=== PATIENT | male | born 1995 | race Caucasian/White ===

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

== ENCOUNTER 2017-03-06 20:52 | Emergency (ER) | payer OTHER ==
[2017-03-06 21:00] VITALS: BP 144/64; PULSE 83; RESP 18; TEMP 98
--- NOTE | 2017-03-06 21:24 | ED ---
Skin/Abscess/FB HPI - General Chief complaint: Skin/Abscess/Foreign Body Stated complaint: Poss Poison [place] Time Seen by Provider: 03/06/17 21:08 Source: patient, RN notes reviewed, old records reviewed Mode of arrival: ambulatory Limitations: no limitations - History of Present Illness Initial comments: This patient is a 21-year-old male presents today to complain of poison oak rash. Patient reports that he was hunting this weekend and was exposed. Your ports that he tried to use vduq-krm-xjshgmj medications but the rash is spreading and becoming worse. He reports it's very puritic. Denies any fever, chills, chest pain, shortness of breath, nausea or vomiting. - Related Data Previous Rx's Medication Instructions Recorded predniSONE 10 mg PO DAILY #30 tab 03/06/17 Allergies Allergy/AdvReac Type Severity Reaction Status Date / Time No Known Allergies Allergy Verified 03/06/17 21:08 Review of Systems ROS Statement: Those systems with pertinent positive or pertinent negative responses have been documented in the HPI. ROS Other: All systems not noted in ROS Statement are negative. Past Medical History Past Medical History: Asthma History of Any Multi-Drug Resistant Organisms: None Reported Past Surgical History: Adenoidectomy, Appendectomy, Ear Surgery, Tonsillectomy Additional Past Surgical History / Comment(s): ear tubes, Past Psychological History: No Psychological Hx Reported Smoking Status: Former smoker Past Alcohol Use History: Occasional Past Drug Use History: None Reported General Exam - General Exam Comments Initial Comments: Patient is a 21 year old male. No acute distress Limitations: no limitations General appearance: alert, in no apparent distress Head exam: Present: atraumatic, normocephalic, normal inspection Eye exam: Present: normal appearance, PERRL, EOMI. Absent: scleral icterus, conjunctival injection, periorbital swelling ENT exam: Present: normal exam, mucous membranes moist Neck exam: Present: normal inspection. Absent: tenderness, meningismus, lymphadenopathy Respiratory exam: Present: normal lung sounds bilaterally. Absent: respiratory distress, wheezes, rales, rhonchi, stridor Cardiovascular Exam: Present: regular rate, normal rhythm, normal heart sounds. Absent: systolic murmur, diastolic murmur, rubs, gallop, clicks Neurological exam: Present: alert, oriented X3 Psychiatric exam: Present: normal affect, normal mood Skin exam: Present: warm, dry, intact, normal color, rash (erythematous liniear raised rash on chest right iarm consistent wth poision karina or oak) Course Vital Signs 03/06/17 20:56 Temperature 98.0 F Pulse Rate 83 Respiratory 18 Rate Blood Pressure 144/64 O2 Sat by Pulse 98 Oximetry Medical Decision Making - Medical Decision Making This patient is a 21-year-old male presents today to complain of poison oak rash. Patient reports that he was hunting this weekend and was exposed. Your ports that he tried to use ojra-gcr-nhnrtea medications but the rash is spreading and becoming worse.Patient has a raised your rash consistent with poison oak over chest, neck, and right arm. Patient was given IM Solu-Medrol. Will be discharged with steroids. Discussed using zyie-ygb-ycmekku Caladryl to dry the rash out. Discussed all questions were answered us. Disposition Clinical Impression: Poison karina dermatitis Disposition: HOME SELF-CARE Condition: Good Instructions: Poison Karina (ED) Additional Instructions: Patient advised to apply Caladryl lotion over the areas. Take Benadryl as well. Take the steroids as directed. Avoid hot showers's that we'll make the itching worse. Return to the emergency department if any alarming signs or symptoms occur. Prescriptions: predniSONE 10 mg PO DAILY #30 tab Referrals: None,Stated [Primary Care Provider] - 1-2 days Time of Disposition: 21:33
[2017-03-06] MEDS ORDERED: methylPREDNISolone SOD SUCCI 125 MG/2 ML VIAL IM ONE (21:32)
== END 2017-03-06 21:50 | disposition home or self-care (01) ==
LOC: EC 20:52
DX: L23.7 Allergic contact dermatitis due to plants, except food (principal); Z87.891 Personal history of nicotine dependence
CPT/HCPCS: 99283; 96372; J2930

== ENCOUNTER 2018-02-25 18:57 | Emergency (ER) | payer OTHER ==
[2018-02-25 19:01] VITALS: BP 124/70; PULSE 83; RESP 16; TEMP 98.3
[2018-02-25] MEDS ORDERED: PROPARACAINE 0.5% OPHTH DROPS 15 ML BTL RIGHT EYE STA (19:15)
[2018-02-25] MEDS ORDERED: TOBRAMYCIN 0.3% OPHTH OINT 3.5 GM TUBE RIGHT EYE STA (19:56)
--- NOTE | 2018-02-25 19:56 | ED ---
Eye Problem HPI - General Chief complaint: Eye Problems Stated complaint: FB in eye Time Seen by Provider: 02/25/18 19:14 Source: patient Mode of arrival: ambulatory Limitations: no limitations - History of Present Illness Initial comments: 22-year-old male patient presents to the emergency department today for evaluation of right eye discomfort and tearing. Patient states that he was cutting plywood earlier today around 11:30 this morning. States that something flew into his eye during this. Patient states that he did attempt to flush out however the eye remained painful throughout the day. Denies any blurred vision or double vision. States his tetanus vaccine is up-to-date. Denies any bloody drainage from the eye. Denies any other symptoms or concerns. - Related Data Home Medications Medication Instructions Recorded Confirmed No Known Home Medications 02/25/18 02/25/18 Allergies Allergy/AdvReac Type Severity Reaction Status Date / Time No Known Allergies Allergy Verified 02/25/18 19:01 Review of Systems ROS Statement: Those systems with pertinent positive or pertinent negative responses have been documented in the HPI. ROS Other: All systems not noted in ROS Statement are negative. Past Medical History Past Medical History: Asthma History of Any Multi-Drug Resistant Organisms: None Reported Past Surgical History: Adenoidectomy, Appendectomy, Ear Surgery, Tonsillectomy Additional Past Surgical History / Comment(s): ear tubes, Past Psychological History: No Psychological Hx Reported Smoking Status: Former smoker Past Alcohol Use History: Occasional Past Drug Use History: None Reported General Exam Limitations: no limitations General appearance: alert, in no apparent distress, other (This is a well- developed, well-nourished adult male patient in no acute distress. Vital signs upon presentation are temperature 98.3F, pulse 83, respirations 16, blood pressure 124/70, pulse ox 99% on room air.) Eye exam: Present: PERRL, EOMI, conjunctival injection (Mild conjunctival injection on the right), other (Right lid swelling and erythema. Did perform lid eversion, no evidence of foreign body. Fluorescein stain with Wood's lamp examination was performed and showed no evidence of corneal or conjunctival abrasion. No evidence of hyphema or globe rupture appear). Absent: normal appearance, scleral icterus, periorbital swelling ENT exam: Present: normal exam, normal oropharynx, mucous membranes moist Respiratory exam: Present: normal lung sounds bilaterally. Absent: respiratory distress, wheezes, rales, rhonchi, stridor Cardiovascular Exam: Present: regular rate, normal rhythm, normal heart sounds. Absent: systolic murmur, diastolic murmur, rubs, gallop, clicks Neurological exam: Present: alert, oriented X3, CN II-XII intact Psychiatric exam: Present: normal affect, normal mood Skin exam: Present: warm, dry, intact, normal color. Absent: rash Course Vital Signs 02/25/18 18:59 Temperature 98.3 F Pulse Rate 83 Respiratory 16 Rate Blood Pressure 124/70 O2 Sat by Pulse 99 Oximetry Medical Decision Making - Medical Decision Making 22-year-old male patient presents to the emergency department today for evaluation of right eye irritation and discomfort. Physical examination did reveal mild right-sided conjunctival injection with mild right upper lid swelling. Fluorescein stain with Wood's lamp examination was performed and showed no evidence of corneal or conjunctival abrasion. I did perform lid eversion both upper and lower showed no evidence of foreign body. Patient did have complete resolution of symptoms with use of proparacaine. I also did discuss the case with poison control as the nupur was treated with a fire retardant chemical. They reported no concern for contamination to the eye from this. Patient has no evidence of globe injury. Vision is intact. He'll be discharged home at the tobramycin ointment to use 4 times daily. He is instructed to follow-up with the bookkeepers supervisor for recheck in 1-2 days if his symptoms aren't improved. Return parameters are discussed in detail. He verbalizes understanding and agrees with this plan Disposition Clinical Impression: Irritation of right eye Disposition: HOME SELF-CARE Condition: Good Instructions: Tobramycin (Into the eye), Eye Pain (ED) Additional Instructions: By 1 cm ribbon of ointment to the right eye 4 times daily while awake. Follow- up with ophthalmology for recheck of her symptoms aren't improved over the next 24-48 hours. Return to the emergency department immediately for any new, worsening, or concerning symptoms. Is patient prescribed a controlled substance at d/c from ED?: No Referrals: None,Stated [Primary Care Provider] - 1-2 days Time of Disposition: 19:56
== END 2018-02-25 20:15 | disposition home or self-care (01) ==
LOC: EC 18:57
DX: H57.89 Other specified disorders of eye and adnexa (principal); Z87.891 Personal history of nicotine dependence
CPT/HCPCS: 99283

== ENCOUNTER 2018-08-15 19:28 | Emergency (ER) | payer OTHER ==
[2018-08-15] MEDS ORDERED: DIPH,PERTUS(ACELL)TETVAC-LF 0.5 ML VIAL IM ONE (19:58)
[2018-08-15] MEDS ORDERED: LIDOCAINE 1% INJ 10MG/ML (20 ML MDV) SQ ONE (19:59)
[2018-08-15 20:15] VITALS: BP 131/78; PULSE 85; RESP 18; TEMP 98
--- NOTE | 2018-08-15 20:58 | XR ---
EXAMINATION TYPE: XR hand complete LT DATE OF EXAM: 08/15/2018 COMPARISON: NONE HISTORY: Pain. Laceration. TECHNIQUE: 3 views FINDINGS: There is a tuft fracture of the distal phalanx of the index finger. There is no sign of a r adiopaque foreign body. The fourth and fifth digits are intact. Carpal bones are intact. IMPRESSION: Tuft fracture of the distal phalanx. No fracture seen of the fourth and fifth digits whic h were the area of concern. No sign of a foreign body.
--- NOTE | 2018-08-15 21:32 | ED ---
Skin/Abscess/FB HPI - General Chief complaint: Skin/Abscess/Foreign Body Stated complaint: Finger lac Time Seen by Provider: 08/15/18 19:42 Source: patient Mode of arrival: ambulatory Limitations: no limitations - History of Present Illness Initial comments: 22-year-old male presenting for chief complaint of left hand laceration. Patient states he cut his finger on a steak in the ground between the fourth and fifth digits. Patient states he has no limitations in range of motion he states the bleeding is controlled. Patient denies any numbness tingling or loss sensation. Remaining review of systems negative patient denies injury to head neck. Patient states he previously his index finger with a hammer about a week or 2 ago. No acute injury. Remaining review of systems negative upon arrival patient appears well no signs of acute distress. Pt unsure of last tetanus - Related Data Home Medications Medication Instructions Recorded Confirmed No Known Home Medications 02/25/18 02/25/18 Allergies Allergy/AdvReac Type Severity Reaction Status Date / Time No Known Allergies Allergy Verified 02/25/18 19:01 Review of Systems ROS Statement: Those systems with pertinent positive or pertinent negative responses have been documented in the HPI. ROS Other: All systems not noted in ROS Statement are negative. Past Medical History Past Medical History: Asthma History of Any Multi-Drug Resistant Organisms: None Reported Past Surgical History: Adenoidectomy, Appendectomy, Ear Surgery, Tonsillectomy Additional Past Surgical History / Comment(s): ear tubes, Past Psychological History: No Psychological Hx Reported Smoking Status: Former smoker Past Alcohol Use History: Occasional Past Drug Use History: None Reported General Exam - General Exam Comments Initial Comments: General: The patient is awake and alert, in no distress, and does not appear acutely ill. Eye: Pupils are equal, round and reactive to light, extra-ocular movements are intact. No nystagmus. There is normal conjunctiva bilaterally. No signs of icterus. Ears, nose, mouth and throat: There are moist mucous membranes and no oral lesions. Neck: The neck is supple, there is no tenderness or JVD. Cardiovascular: There is a regular rate and rhythm. No murmur, rub or gallop is appreciated. Respiratory: Lungs are clear to auscultation, respirations are non-labored, breath sounds are equal. No wheezes, stridor, rales, or rhonchi. Musculoskeletal: Normal ROM, no tenderness. Strength 5/5. Sensation intact. Pulses equal bilaterally 2+. Neurological: A&O x 3. CN II-XII intact, There are no obvious motor or sensory deficits. Coordination appears grossly intact. Speech is normal. Skin: Skin is warm and dry and no rashes. 1.2 cm superficial laceration of the left hand in the web space between digitis 4-5. Status post of underlying structures. Patient is full range motion at the IP joints as well as the MTP joint. No noted weakness. No concern for tendon injury. No evidence of foreign body. Also digits of the left hand have no noted weakness at the MTP T IP or PIP joints. Full sensation of the proximal distal to injury site. Psychiatric: Cooperative, appropriate mood & affect, normal judgment. Limitations: no limitations Course Vital Signs 08/15/18 08/15/18 19:31 20:14 Temperature 98.2 F 98 F Pulse Rate 86 85 Respiratory 16 18 Rate Blood Pressure 132/78 131/78 O2 Sat by Pulse 96 99 Oximetry Procedures - Laceration Laceration #1 Consent Obtained: verbal consent Indication: laceration Site: hand Size (cm): 1 (1.2) Description: linear Depth: simple, single layer Anesthetic Used: lidocaine 1% Anesthesia Technique: local infiltration Amount (mls): 1 Pre-repair: wound explored, irrigated extensively, deep structures intact Type of Sutures: nylon Size of Sutures: 5-0 Number of Sutures: 3 Technique: simple, interrupted Patient Tolerated Procedure: well, no complications Medical Decision Making - Medical Decision Making 22-year-old male presenting for chief complaint of left hand laceration. Laceration appears superficial. No suspicion for tendon injury. Full range of motion without any evidence of weakness evidence of tendon exposure on examination. No evidence of foreign body. Tetanus updated. There is extensive the irrigated and cleansed with iodine. Prior to closure. Patient tolerate the procedure well. X-ray revealed no evidence of foreign body or osseous injury associated with the area of laceration however there was no tuft fracture of the index finger. This is not acute. This happened earlier this week. Patient has no limitation to range of motion at the index finger. No evidence of avulsion of nail. Discussed the case attending provider Dr. Shay. Patient stated for discharge. Return parameters as well as return for suture removal in 7 days was discussed with patient as well as the signs and symptoms of infection. Patient verbalized understanding. Disposition Clinical Impression: Hand laceration, Hand injury, Closed fracture of tuft of distal phalanx of finger Disposition: HOME SELF-CARE Condition: Good Instructions (If sedation given, give patient instructions): Care For Your Stitches (ED), Laceration (ED) Additional Instructions: Please use medication as discussed. Please follow-up with family doctor in the next 2 days, and in 7 days for future removal. Please return to emergency room if the symptoms increase or worsen or for any other concerns. Is patient prescribed a controlled substance at d/c from ED?: No Referrals: None,Stated [Primary Care Provider] - 1-2 days Time of Disposition: 21:32
== END 2018-08-15 21:54 | disposition home or self-care (01) ==
LOC: EC 19:28
DX: S62.631A Displaced fracture of distal phalanx of left index finger, initial encounter for closed fracture (principal); S61.412A Laceration without foreign body of left hand, initial encounter; Z87.891 Personal history of nicotine dependence; Z23 Encounter for immunization; W26.8XXA Contact with other sharp object(s), not elsewhere classified, initial encounter
CPT/HCPCS: 73130; 90715; 99283; 12001; 90471; J2001

== ENCOUNTER 2019-09-17 01:19 | Emergency (ER) | payer OTHER ==
[2019-09-17 01:27] VITALS: RESP 18
[2019-09-17] MEDS ORDERED: SODIUM CHLORIDE 0.9% 500 ML 500 ML IV STA (01:42)
[2019-09-17] MEDS ORDERED: MORPHINE SULFATE 4 MG/ML SYRINGE IV STA (02:09)
[2019-09-17 02:11] LABS: Basophils # (A) 0.1 k/uL (0-0.2); Basophils % (A) 1 %; Eosinophils # (A) 0.4 k/uL (0-0.7); Eosinophils % (A) 7 %; HCT 44.2 % (39.0-53.0); HGB 14.7 gm/dL (13.0-17.5); Lymphocytes # (A) 2.3 k/uL (1.0-4.8); Lymphocytes % (A) 39 %; MCHC 33.3 g/dL (31.0-37.0); MCV 90.1 fL (80.0-100.0); Mean Platelet Volume 6.8; Monocytes # (A) 0.4 k/uL (0-1.0); Monocytes % (A) 7 %; Neutrophils # (A) 2.6 k/uL (1.3-7.7); Neutrophils % (A) 44 %; Platelet Count 299 k/uL (150-450); RBC 4.91 m/uL (4.30-5.90); RDW 12.3 % (11.5-15.5)
[2019-09-17 02:21] LABS: ALT 22 U/L (4-49); AST 26 U/L (17-59); African American GFR (CKD) >90 (>60 ml/min/1.73 sqM); Albumin 4.8 g/dL (3.5-5.0); Alkaline Phosphatase 65 U/L (38-126); Anion Gap 10 mmol/L; Blood Urea Nitrogen 14 mg/dL (9-20); Calcium 9.7 mg/dL (8.4-10.2); Carbon Dioxide 26 mmol/L (22-30); Chloride 105 mmol/L (98-107); Glucose 97 mg/dL (74-99); Non-African American GFR(CKD) >90 (>60 ml/min/1.73 sqM); Potassium 3.8 mmol/L (3.5-5.1); Sodium 141 mmol/L (137-145); Total Bilirubin 0.6 mg/dL (0.2-1.3)
--- NOTE | 2019-09-17 02:30 | XR ---
EXAMINATION TYPE: XR chest 2V DATE OF EXAM: 09/17/2019 COMPARISON: 01/17/2017 HISTORY: Difficulty breathing TECHNIQUE: FINDINGS: Heart and mediastinum are normal. Lungs are clear. Diaphragm is normal. Bony thorax appears normal. IMPRESSION: Normal chest. No change.
[2019-09-17 02:50] VITALS: BP 131/85; PULSE 64; TEMP 97.5
--- NOTE | 2019-09-17 02:53 | CT ---
EXAMINATION TYPE: CT angio chest DATE OF EXAM: 09/17/2019 COMPARISON: None HISTORY: PAIN Chest pain. CT DLP: 473.4 mGycm Automated exposure control for dose reduction was used. CONTRAST: Performed with IV Contrast, patient injected with 70 mL of Isovue 370. There are 3-D post processed images. FINDINGS: Mediastinum is normal. Thoracic aorta is intact. There is no aneurysm or dissection. Heart appears no rmal. There is no pericardial effusion. There is no pleural effusion. There is minimal interstitial d ensity right posterior lung base. There is no evidence of a pulmonary mass. There is no pulmonary con solidation. Bony thorax is intact. There is no compression fracture. Sternum is intact. The upper abdominal soft tissues are intact. There is normal contrast opacification of the pulmonary arteries. There are no filling defects. IMPRESSION: Negative CT angiogram of the chest. No evidence of pulmonary embolism.
--- NOTE | 2019-09-17 02:59 | CT ---
EXAMINATION TYPE: CT angio upper extremity LT DATE OF EXAM: 09/17/2019 COMPARISON: None HISTORY: pain Arm pain. Pain at the shoulder and wrist. CT DLP: 556.7 mGycm Automated exposure control for dose reduction was used. CONTRAST: Performed with IV Contrast, patient injected with 130 mL of Isovue 370. There are 3-D post processed images. There is wide patency of the left subclavian artery. There is normal branching pattern of the great v essels on the aortic arch. There is wide patency of the left axillary and left brachial artery. There is arterial flow demonstrated in the distal brachial artery. The radial and ulnar arteries are not w ell evaluated on this exam. There is insufficient contrast in these vessels for adequate evaluation. There appears to be arterial flow in the radial and ulnar arteries in the distal forearm. I cannot ev aluate for stenosis. The mip images in the coronal plane appear to show normal-sized vessels in the m id and proximal forearm of the radius and ulna arteries. There is no evidence of a soft tissue mass. There is no evidence of an aneurysm. I see no evidence of vascular malformation. IMPRESSION: Exam fails to show any vascular abnormality of the left arm. There is wide patency of the subclavian axillary brachial and proximal radial and ulnar arteries.
--- NOTE | 2019-09-17 03:15 | ED ---
General Adult HPI - General Chief complaint: Extremity Problem,Nontraumatic Stated complaint: LT arm pain, SOB Time Seen by Provider: 09/17/19 01:30 Source: patient, RN notes reviewed, old records reviewed Mode of arrival: ambulatory Limitations: no limitations - History of Present Illness Initial comments: 24-year-old male patient presents to emergency department with chief complaint left shoulder pain. Patient reports that he was lying in bed approximately 11 PM when he had some numbness and tingling on the left arm. Patient then began to have pain in his left shoulder extending down to his left wrist region. Patient denies any acute injury. 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 He reports that for a brief time he had some pain in his left shoulder when he took a deep breath denies any shortness of breath or any chest pain. Denies any other complaints. Systemic: Pt denies fatigue, fever/chills, rash. Pt denies weakness, night sweats, weight loss. Neuro: Pt denies headache, visual disturbances, syncope or pre-syncope. HEENT: Pt denies ocular discharge or irritation, otalgia, rhinorrhea, pharyngitis or notable lymphadenopathy. Cardiopulmonary: Pt denies chest pain, SOB, heart palpitations, dyspnea on exertion. Abdominal/GI: Pt denies abdominal pain, n/v/d. : Pt denies dysuria, burning w/ urination, frequency/urgency. Denies new onset urinary or bowel incontinence. MSK: Pt denies myalgia, loss of strength or function in extremities. Neuro: Pt denies new onset weakness, paresthesias. - Related Data Home Medications Medication Instructions Recorded Confirmed No Known Home Medications 02/25/18 02/25/18 Allergies Allergy/AdvReac Type Severity Reaction Status Date / Time No Known Allergies Allergy Verified 09/17/19 01:27 Review of Systems ROS Statement: Those systems with pertinent positive or pertinent negative responses have been documented in the HPI. ROS Other: All systems not noted in ROS Statement are negative. Past Medical History Past Medical History: Asthma History of Any Multi-Drug Resistant Organisms: None Reported Past Surgical History: Adenoidectomy, Appendectomy, Ear Surgery, Tonsillectomy Additional Past Surgical History / Comment(s): ear tubes, Past Psychological History: No Psychological Hx Reported Smoking Status: Never smoker Past Alcohol Use History: Occasional Past Drug Use History: None Reported General Exam - General Exam Comments Initial Comments: Constitutional: NAD, AOX3, Pt has pleasant affect. HEENT: NC/AT, trachea midline, neck supple, no lymphadenopathy. External ears appear normal, without discharge. Mucous membranes moist. Eyes PERRLA, EOM intact. There is no scleral icterus. No pallor noted. Cardiopulmonary: RRR, no murmurs, rubs or gallops, no JVD noted. Lungs CTAB in anterior and posterior tena. No peripheral edema. Abdominal exam: Abdomen soft and non-distended. Abdomen non-tender to palpation in all 4 quadrants. Bowel sounds active in LLQ. No hepatosplenomegaly. No ecchymosis Neuro: CN II-XII intact. No nuchal rigidity. No raccon eyes, no null sign, no hemotympanum. No cervical spinal tenderness. MSK: Left shoulder proximal biceps region is mildly tender to palpation. Range of motion is intact and does cause reproducible discomfort. There are no acute skin changes or edema noted. Radial pulses +2 sensation is intact. Distal pulses are intact and equal bilaterally. Limitations: no limitations Course Vital Signs 09/17/19 09/17/19 01:22 02:48 Temperature 98.2 F 97.5 F L Pulse Rate 68 64 Respiratory 18 18 Rate Blood Pressure 164/103 131/85 O2 Sat by Pulse 100 98 Oximetry Medical Decision Making - Medical Decision Making 24-year-old male patient presents to ED for evaluation of left shoulder pain. Patient also attends display mild hypertension. Physical exam displayed some tenderness to palpation and reproducible discomfort. Laboratory investigations were obtained troponin is negative. Noncompressive otherwise. CT chest angiography was negative for any acute process. No evidence of PE no evidence of aneurysm or dissection. Left upper extremity CT angiography was negative for any acute process as well. Patient pain is likely musculoskeletal in nature. Patient is feeling improved this continued denies any chest pain shortness of breath. Patient discharged will follow-up with his primary care provider and return here if any worsening symptoms. Case discussed with Dr. Naranjo. - Lab Data Result diagrams: 09/17/19 02:03 09/17/19 02:03 Lab Results 09/17/19 09/17/19 09/17/19 Range/Units 02:03 02:03 02:03 WBC 6.0 (3.8-10.6) k/uL RBC 4.91 (4.30-5.90) m/uL Hgb 14.7 (13.0-17.5) gm/dL Hct 44.2 (39.0-53.0) % MCV 90.1 (80.0-100.0) fL MCH 30.0 (25.0-35.0) pg MCHC 33.3 (31.0-37.0) g/dL RDW 12.3 (11.5-15.5) % Plt Count 299 (150-450) k/uL Neutrophils % 44 % Lymphocytes % 39 % Monocytes % 7 % Eosinophils % 7 % Basophils % 1 % Neutrophils # 2.6 (1.3-7.7) k/uL Lymphocytes # 2.3 (1.0-4.8) k/uL Monocytes # 0.4 (0-1.0) k/uL Eosinophils # 0.4 (0-0.7) k/uL Basophils # 0.1 (0-0.2) k/uL Sodium 141 (137-145) mmol/L Potassium 3.8 (3.5-5.1) mmol/L Chloride 105 (98-107) mmol/L Carbon Dioxide 26 (22-30) mmol/L Anion Gap 10 mmol/L BUN 14 (9-20) mg/dL Creatinine 0.91 (0.66-1.25) mg/dL Est GFR (CKD-EPI)AfAm >90 (>60 ml/min/1.73 sqM) Est GFR (CKD-EPI)NonAf >90 (>60 ml/min/1.73 sqM) Glucose 97 (74-99) mg/dL Plasma Lactic Acid Brannon 0.9 (0.7-2.0) mmol/L Calcium 9.7 (8.4-10.2) mg/dL Total Bilirubin 0.6 (0.2-1.3) mg/dL AST 26 (17-59) U/L ALT 22 (4-49) U/L Alkaline Phosphatase 65 (38-126) U/L Troponin I (0.000-0.034) ng/mL Total Protein 7.0 (6.3-8.2) g/dL Albumin 4.8 (3.5-5.0) g/dL 09/17/19 Range/Units 02:03 WBC (3.8-10.6) k/uL RBC (4.30-5.90) m/uL Hgb (13.0-17.5) gm/dL Hct (39.0-53.0) % MCV (80.0-100.0) fL MCH (25.0-35.0) pg MCHC (31.0-37.0) g/dL RDW (11.5-15.5) % Plt Count (150-450) k/uL Neutrophils % % Lymphocytes % % Monocytes % % Eosinophils % % Basophils % % Neutrophils # (1.3-7.7) k/uL Lymphocytes # (1.0-4.8) k/uL Monocytes # (0-1.0) k/uL Eosinophils # (0-0.7) k/uL Basophils # (0-0.2) k/uL Sodium (137-145) mmol/L Potassium (3.5-5.1) mmol/L Chloride (98-107) mmol/L Carbon Dioxide (22-30) mmol/L Anion Gap mmol/L BUN (9-20) mg/dL Creatinine (0.66-1.25) mg/dL Est GFR (CKD-EPI)AfAm (>60 ml/min/1.73 sqM) Est GFR (CKD-EPI)NonAf (>60 ml/min/1.73 sqM) Glucose (74-99) mg/dL Plasma Lactic Acid Brannon (0.7-2.0) mmol/L Calcium (8.4-10.2) mg/dL Total Bilirubin (0.2-1.3) mg/dL AST (17-59) U/L ALT (4-49) U/L Alkaline Phosphatase (38-126) U/L Troponin I <0.012 (0.000-0.034) ng/mL Total Protein (6.3-8.2) g/dL Albumin (3.5-5.0) g/dL - EKG Data -: EKG Interpreted by Me (and Dr. Naranjo ) EKG Comments: Ventricular rate 62, MT interval 166, QRS 92, QT/QTC 398/43. Normotensive normal EKG no concern for acute ischemia. Disposition Clinical Impression: Shoulder pain Disposition: HOME SELF-CARE Condition: Stable Instructions (If sedation given, give patient instructions): Shoulder Pain (ED) Additional Instructions: Follow-up with primary care provider tomorrow. Return to ER if any worsening s ymptoms. Is patient prescribed a controlled substance at d/c from ED?: No Referrals: None,Stated [Primary Care Provider] - 1-2 days Clarisa Rust MD [REFERRING] - 1-2 days
[2019-09-17] MEDS ORDERED: ACET/COD 300 MG/30 MG STARTER PACK 6 TAB BTL PO STA (03:17)
== END 2019-09-17 03:38 | disposition home or self-care (01) ==
LOC: EC 01:19
DX: M25.512 Pain in left shoulder (principal); I10 Essential (primary) hypertension; Z87.09 Personal history of other diseases of the respiratory system
CPT/HCPCS: 99285; 96374; 96361; 36415; 93005; 80053; 83605; 84484; 85025; 71046; 73206; 71275; J2270; Q9967

== ENCOUNTER 2020-12-30 21:51 | Emergency (ER) | payer BC ==
[2020-12-30 22:20] VITALS: TEMP 98.7
[2020-12-30] MEDS ORDERED: IBUPROFEN 600 MG TAB PO STA (22:29)
--- NOTE | 2020-12-30 22:43 | ED ---
URI HPI - General Chief Complaint: Upper Respiratory Infection Stated Complaint: covid symptoms Time Seen by Provider: 12/30/20 22:24 Source: patient Mode of arrival: ambulatory Limitations: no limitations - History of Present Illness Initial Comments: 25 year-old male patient presents requesting COVID test. States he has had cough, congestion, and sore throat for the last three days. States he has had some shortness of breath. Reports sputum production this morning. Reports body aches. Denies any fever or chills. Has not been vaccinated. Denies taking any medication for his symptoms. States he did have asthma as a child has outgrown it. Denies any other medical problems. - Related Data Previous Rx's Medication Instructions Recorded Ibuprofen [Motrin] 600 mg PO Q8HR PRN #30 tab 12/30/20 guaiFENesin-DM 600/30MG [Mucinex 2 each PO Q12HR PRN #20 tab 12/30/20 Dm] Allergies Allergy/AdvReac Type Severity Reaction Status Date / Time No Known Allergies Allergy Verified 12/30/20 22:20 Review of Systems ROS Statement: Those systems with pertinent positive or pertinent negative responses have been documented in the HPI. ROS Other: All systems not noted in ROS Statement are negative. Past Medical History Past Medical History: Asthma History of Any Multi-Drug Resistant Organisms: None Reported Past Surgical History: Adenoidectomy, Appendectomy, Ear Surgery, Tonsillectomy Additional Past Surgical History / Comment(s): ear tubes, Past Psychological History: No Psychological Hx Reported Smoking Status: Never smoker Past Alcohol Use History: Occasional Past Drug Use History: None Reported General Exam Limitations: no limitations General appearance: alert, in no apparent distress, other (This is a well- developed, well-nourished adult male patient in no acute distress.) Eye exam: Present: normal appearance, PERRL, EOMI. Absent: scleral icterus, conjunctival injection, periorbital swelling ENT exam: Present: mucous membranes moist, TM's normal bilaterally. Absent: normal oropharynx (Pharyngeal erythema. No tonsillar hypertrophy or exudate. Tonsils are symmetric and uvula is midline.) Respiratory exam: Present: normal lung sounds bilaterally. Absent: respiratory distress, wheezes, rales, rhonchi, stridor Cardiovascular Exam: Present: regular rate, normal rhythm, normal heart sounds. Absent: systolic murmur, diastolic murmur, rubs, gallop, clicks GI/Abdominal exam: Present: soft, normal bowel sounds. Absent: distended, tenderness, guarding, rebound, rigid Neurological exam: Present: alert, oriented X3, CN II-XII intact Psychiatric exam: Present: normal affect, normal mood Skin exam: Present: warm, dry, intact, normal color. Absent: rash Course Vital Signs 12/30/20 12/31/20 22:15 00:16 Temperature 98.7 F 98.7 F Pulse Rate 85 84 Respiratory 24 18 Rate Blood Pressure 131/80 127/74 O2 Sat by Pulse 100 100 Oximetry Medical Decision Making - Medical Decision Making 25-year-old male patient presents to the emergency department today for evaluation of cough, congestion, sore throat. Physical examination did reveal some pharyngeal erythema. No tonsillar hypertrophy or exudate. He is afebrile, vital signs. Tested negative for COVID-19. He'll be discharged up with his primary care physician for recheck in 1-2 days. He is given prescriptions for Mucinex DM, and ibuprofen. Return parameters were discussed in detail. He verbalizes understanding and agrees with this plan. My attending is Dr. Bueno. - Lab Data Lab Results 12/30/20 Range/Units 22:37 Coronavirus (PCR) Not Detected (Not Detectd) Disposition Clinical Impression: Viral upper respiratory infection Disposition: HOME SELF-CARE Condition: Good Instructions (If sedation given, give patient instructions): Upper Respiratory Infection (ED) Additional Instructions: Take medication as directed. Follow up with the primary care physician for recheck in 1-2 days. Return for any new, worsening, or concerning symptoms. Prescriptions: Ibuprofen [Motrin] 600 mg PO Q8HR PRN #30 tab PRN Reason: Pain guaiFENesin-DM 600/30MG [Mucinex Dm] 2 each PO Q12HR PRN #20 tab PRN Reason: Cough Is patient prescribed a controlled substance at d/c from ED?: No Referrals: None,Stated [Primary Care Provider] - 1-2 days Time of Disposition: 23:43
[2020-12-31 00:19] VITALS: BP 127/74; PULSE 84; RESP 18
== END 2020-12-30 23:53 | disposition home or self-care (01) ==
LOC: EC 21:51
DX: J06.9 Acute upper respiratory infection, unspecified (principal); J45.909 Unspecified asthma, uncomplicated; Z72.89 Other problems related to lifestyle
CPT/HCPCS: 87635; 99284

== ENCOUNTER 2021-01-14 21:44 | Emergency (ER) | payer BC ==
[2021-01-14 22:00] VITALS: RESP 18
[2021-01-14] MEDS ORDERED: ACETAMINOPHEN TAB 500 MG TAB PO STA (22:40)
--- NOTE | 2021-01-14 23:00 | ED ---
General Adult HPI - General Chief complaint: Upper Respiratory Infection Stated complaint: Fever,Body Aches,Cough Time Seen by Provider: 01/14/21 22:06 Source: patient, RN notes reviewed, old records reviewed Mode of arrival: ambulatory Limitations: no limitations - History of Present Illness Initial comments: Patient is a 25-year-old male with past medical history remarkable for asthma presents emergency Department complaining of fevers, cough, body aches, loss of taste and smell. He suspects he caught COVID-19 from a friend. Symptoms started yesterday 01/13/2021. He has not yet had a test. He was not vaccinated for COVID-19 in his no prior infections with her. He denies any other acute complaints at this time. States is a mild nonproductive cough. Patient presents for COVID-19 testing. - Related Data Previous Rx's Medication Instructions Recorded Acetaminophen Tab [Tylenol] 500 mg PO Q6H 7 Days #28 tablet 01/14/21 Albuterol Inhaler [Ventolin Hfa 1 puff INHALATION RT-QID #8 gm 01/14/21 Inhaler] Allergies Allergy/AdvReac Type Severity Reaction Status Date / Time No Known Allergies Allergy Verified 01/14/21 22:19 Review of Systems ROS Statement: Those systems with pertinent positive or pertinent negative responses have been documented in the HPI. Review of Systems: CONST: Endorses fever EYES: Denies blurry vision ENT: Endorses nasal congestion C/V: Denies Chest pain RESP: Endorses cough GI: Denies abdominal pain : Denies dysuria SKIN: Denies rash. MSK: Denies joint pain. NEURO: Denies headache ROS Other: All systems not noted in ROS Statement are negative. Past Medical History Past Medical History: Asthma History of Any Multi-Drug Resistant Organisms: None Reported Past Surgical History: Adenoidectomy, Appendectomy, Ear Surgery, Tonsillectomy Additional Past Surgical History / Comment(s): ear tubes, Past Psychological History: No Psychological Hx Reported Smoking Status: Vaper Past Alcohol Use History: Occasional Past Drug Use History: None Reported General Exam - General Exam Comments Initial Comments: General: Appears ill but nontoxic appearing and in no acute distress. Febrile. HEAD: Normal with no signs of head trauma. EYES: PERRLA, EOMI, conjunctiva normal, no discharge. ENT: Hearing grossly intact, normal oropharynx. Mucous membranes are moist. RESPIRATORY: Clear breath sounds bilaterally. No wheezes, rales, or rhonchi. No hypoxia. No increased work of breathing. C/V: Regular rate and rhythm. S1 and S2 auscultated, no edema, peripheral pulses 2+ and intact throughout ABD: Abd is soft, nontender, nondistended EXT: Normal range of motion, no obvious deformity SKIN: No rashes or lesions observed on exposed skin. NEURO: Alert and oriented 4. Limitations: no limitations Course Vital Signs 01/14/21 01/14/21 21:55 22:31 Temperature 100.9 F H Pulse Rate 84 Respiratory 18 18 Rate Blood Pressure 114/62 O2 Sat by Pulse 99 Oximetry Medical Decision Making - Medical Decision Making Patient presents seeking COVID-19 testing. Exam is otherwise unremarkable except for febrile illness. He'll be given Tylenol for this. COVID-19 swab will be obtained. I do not believe that he requires any further laboratory studies or imaging and he was in agreement this plan. Patient is not hypoxic and is saturating well on room air. There is no increased work of breathing. Patient's COVID-19 swab is positive. I did discuss with the patient regarding monoclonal antibodies and he did consent. Patient will receive monoclonal antibodies. Following treatment, patient had no reactions. I do believe it is safe for him to be discharged home at this time. Patient was in agreement this plan. Discussed quarentining and obtaining a pulse ox, which he expressed understanding. I will provide the patient with a prescription for albuterol inhaler, Tylenol. I instructed the patient to follow up with their PCP in the next 3 days. I explained that the patient should return to the emergency department if they experience any worsening symptoms. Strict return precautions were discussed with the patient. The patient expressed understanding of these instructions. I answered all questions that the patient had. The patient was discharged home in fair condition with their prescriptions and follow up information. - Lab Data Lab Results 01/14/21 Range/Units 22:03 Coronavirus (PCR) Detected A (Not Detectd) Disposition Clinical Impression: COVID-19 virus infection, Febrile illness, acute Disposition: HOME SELF-CARE Condition: Fair Instructions (If sedation given, give patient instructions): Coronavirus Disease 2019 (COVID-19) Prescriptions: Acetaminophen Tab [Tylenol] 500 mg PO Q6H 7 Days #28 tablet Albuterol Inhaler [Ventolin Hfa Inhaler] 1 puff INHALATION RT-QID #8 gm Is patient prescribed a controlled substance at d/c from ED?: No Referrals: None,Stated [Primary Care Provider] - 1-2 days
[2021-01-14] MEDS ORDERED: SODIUM CHLORIDE 0.9% 50 ML IVPB ONE (23:15)
[2021-01-14] MEDS ORDERED: SOTROVIMAB (EUA) 500 MG in SODIUM CHLORIDE 0.9% 100 ML IVPB ONE (23:15)
[2021-01-15 01:14] VITALS: BP 101/68; PULSE 83; TEMP 98.4
== END 2021-01-15 01:17 | disposition home or self-care (01) ==
LOC: EC 21:44
DX: U07.1 COVID-19 (principal); J45.909 Unspecified asthma, uncomplicated; F17.290 Nicotine dependence, other tobacco product, uncomplicated; Z72.89 Other problems related to lifestyle; Z79.51 Long term (current) use of inhaled steroids
CPT/HCPCS: 87635; 99283; Q0247

== ENCOUNTER 2021-07-11 03:30 | Emergency (ER) | payer BC ==
[2021-07-11 03:36] VITALS: BP 133/71; PULSE 92; RESP 16
[2021-07-11] MEDS ORDERED: IBUPROFEN 800 MG TAB PO STA (03:45)
[2021-07-11] MEDS ORDERED: DEXAMETHASONE SOD PHOSPHATE 10 MG/ML 1 ML VIAL IM STA (03:45)
[2021-07-11] MEDS ORDERED: ACETAMINOPHEN TAB 500 MG TAB PO STA (03:45)
--- NOTE | 2021-07-11 03:46 | ED ---
Fever HPI - General Chief Complaint: Fever Stated Complaint: Vomiting, Shakes/Chills, Back Pain Time Seen by Provider: 07/11/21 03:45 Source: patient, RN notes reviewed, old records reviewed Mode of arrival: ambulatory Limitations: no limitations - History of Present Illness Initial Comments: This is a 25-year-old male to the emergency department for evaluation. This patient presents today for evaluation of fever cough body aches pains cough congestion nausea vomiting. Patient does have sick contacts has had coronavirus in the past this feels the same. No medical history takes no medications otherwise no complaints MD Complaint: fever, malaise -: hour(s) Temperature Source: subjective Context: sick contacts, multiple patients with similar symptoms Associated Symptoms: chills, myalgias, sore throat Treatments Prior to Arrival: none - Related Data Previous Rx's Medication Instructions Recorded Acetaminophen Tab [Tylenol] 500 mg PO Q6H 7 Days #28 tablet 01/14/21 Albuterol Inhaler [Ventolin Hfa 1 puff INHALATION RT-QID #8 gm 01/14/21 Inhaler] Allergies Allergy/AdvReac Type Severity Reaction Status Date / Time No Known Allergies Allergy Verified 07/11/21 03:55 Review of Systems ROS Statement: Those systems with pertinent positive or pertinent negative responses have been documented in the HPI. ROS Other: All systems not noted in ROS Statement are negative. Past Medical History Past Medical History: Asthma History of Any Multi-Drug Resistant Organisms: None Reported Past Surgical History: Adenoidectomy, Appendectomy, Ear Surgery, Tonsillectomy Additional Past Surgical History / Comment(s): ear tubes, Past Psychological History: No Psychological Hx Reported Smoking Status: Vaper Past Alcohol Use History: Occasional Past Drug Use History: None Reported General Exam Limitations: no limitations General appearance: alert, in no apparent distress Head exam: Present: atraumatic, normocephalic, normal inspection Eye exam: Present: normal appearance, PERRL, EOMI. Absent: scleral icterus, conjunctival injection, periorbital swelling ENT exam: Present: normal exam, mucous membranes moist Neck exam: Present: normal inspection. Absent: tenderness, meningismus, lymphadenopathy Respiratory exam: Present: normal lung sounds bilaterally. Absent: respiratory distress, wheezes, rales, rhonchi, stridor Cardiovascular Exam: Present: regular rate, normal rhythm, normal heart sounds. Absent: systolic murmur, diastolic murmur, rubs, gallop, clicks GI/Abdominal exam: Present: soft, normal bowel sounds. Absent: distended, tenderness, guarding, rebound, rigid Extremities exam: Present: normal inspection, full ROM, normal capillary refill. Absent: tenderness, pedal edema, joint swelling, calf tenderness Back exam: Present: normal inspection Neurological exam: Present: alert, oriented X3, CN II-XII intact Psychiatric exam: Present: normal affect, normal mood Skin exam: Present: warm, dry, intact, normal color. Absent: rash Course Vital Signs 07/11/21 07/11/21 03:32 05:02 Temperature 102 F H 100.2 F H Pulse Rate 92 Respiratory 16 Rate Blood Pressure 133/71 O2 Sat by Pulse 97 Oximetry - Reevaluation(s) Reevaluation #1: 07/11/21 medical records reviewed Reevaluation #2: 07/11/21 Patient informed of results and questions answered Reevaluation #3: 07/11/21 Patient feels improved Medical Decision Making - Medical Decision Making 25 male to the emergency department positive flu x-ray negative patient can be discharged home - Lab Data Lab Results 07/11/21 07/11/21 Range/Units 03:36 03:36 Coronavirus (PCR) Not Detected (Not Detectd) Influenza Type A RNA Detected H (Not Detectd) Influenza Type B (PCR) Not Detected (Not Detectd) - Radiology Data Radiology results: report reviewed (Chest x-rays negative for acute disease), image reviewed Disposition Clinical Impression: Influenza, Fever, Viral infection Disposition: HOME SELF-CARE Condition: Good Instructions (If sedation given, give patient instructions): Fever in Adults (ED), Influenza (ED) Is patient prescribed a controlled substance at d/c from ED?: No Referrals: None,Stated [Primary Care Provider] - 1-2 days Time of Disposition: 04:40
--- NOTE | 2021-07-11 04:31 | XR ---
EXAMINATION TYPE: XR chest 1V portable DATE OF EXAM: 07/11/2021 COMPARISON: 09/17/2019 HISTORY: Cough and vomiting TECHNIQUE: Single view FINDINGS: Heart and mediastinum are normal. Lungs are clear. Diaphragm is normal. Bony thorax appears normal. IMPRESSION: Normal chest. No change.
[2021-07-11 05:02] VITALS: TEMP 100.2
== END 2021-07-11 05:05 | disposition home or self-care (01) ==
LOC: EC 03:30
DX: J11.1 Influenza due to unidentified influenza virus with other respiratory manifestations (principal); J45.909 Unspecified asthma, uncomplicated; F17.290 Nicotine dependence, other tobacco product, uncomplicated; Z20.822 Contact with and (suspected) exposure to COVID-19
CPT/HCPCS: 87502; 87635; 71045; 99284; 96372; J1100